=== PATIENT | female | born 1990 | race Caucasian/White ===

== ENCOUNTER 2016-12-31 13:18 | Emergency (ER) | payer SELFPAY ==
[~2016-12-31] VITALS: Ht 154.9 cm; Wt 66.8 kg
[2016-12-31 13:21] VITALS: TEMP 37.2; Ht 154.9 cm; Wt 66.8 kg
[2016-12-31] MEDS ORDERED: KETOROLAC TROMETHAMINE 30 MG/ML VIAL IV STA (14:35)
[2016-12-31] MEDS ORDERED: SODIUM CHLORIDE 0.9% 1000ML 1,000 ML IV STA (14:35)
[2016-12-31 15:03] LABS: BASO % 0.2 %; BASO ABS # 0.03 K/uL (0-0.2); COMPLETE YES; HEMATOCRIT 46.9 % (37-47); IG% 0.3 %; LYMPH % 13.8 %; LYMPH ABS # 1.93 K/uL (1.2-3.4); MEAN CELL VOLUME 95.9 fL (80-100); MEAN CORPUSCULAR HEMOGLOBIN 31.3 pg (25-34); MEAN CORPUSCULAR HGB CONC 32.6 g/dl (32-36); MEAN PLATELET VOLUME 11.6 fL (7.4-10.4); MONO % 9.8 %; NEUT % 75.9 %; PLATELET COUNT 177 K/uL (130-400); RED BLOOD COUNT 4.89 M/uL (4.2-5.4); WHITE BLOOD COUNT 14.03 K/uL (4.8-10.8)
[2016-12-31 15:31] LABS: BUN/CREATININE RATIO 8.2 (10-20); POTASSIUM 4.3 mmol/L (3.5-5.1)
[2016-12-31] MEDS ORDERED: AMOXICILLIN/CLAVULANATE TAB 875 MG TAB PO ONE (15:45)
[2016-12-31] MEDS ORDERED: PRED20TA2 PO (15:50)
[2016-12-31] MEDS ORDERED: AMOX875T PO (15:50)
--- NOTE | 2016-12-31 15:51 | EMERGENCY ROOM VISIT NOTE ---
History First contact with patient: 13:25 Chief Complaint: ILLNESS Stated Complaint: SWOLLEN THROAT, BODY ACHES, FEVER History of Present Illness The patient is a 26 year old female who presents to the Emergency Room with complaints of sore throat and body aches for the past 2 days. The patient states that she has had swollen glands in her throat and body aches, especially in her hips and legs. She rates her discomfort a 7/10. Symptoms have been persistent over the past 2 days. She has a slight headache and states that her stools have been slightly loose. She denies any nausea/vomiting, abdominal pain , chest pain, shortness breath, cough or neck pain/stiffness. She has not taken her temperature at home but feels she has had a fever. She has been taking Tylenol for symptoms. She denies any recent tick bites and does not live in the [facility]. Review of Systems A complete 10 point review of systems was reviewed with the patient with pertinent positives and negatives as per history of present illness. All else were negative. Social History Smoking Status: Current Every Day Smoker Alcohol Use: occasionally Drug Use: none Current/Historical Medications Scheduled Amoxicillin & Pot Clavulanate (Augmentin 875-125 mg), 1 TAB PO BID Prednisone (Prednisone Tab), 2 TAB PO DAILY Physical Exam Vital Signs Date Time Temp Pulse Resp B/P (MAP) Pulse Ox O2 Delivery O2 Flow Rate FiO2 12/31/16 16:44 104 20 107/63 97 12/31/16 15:14 92 20 115/78 98 Room Air 12/31/16 13:21 37.2 107 20 105/73 98 Room Air Physical Exam VITALS: Vitals are noted on the nurse's note and reviewed by myself. Vital signs stable. GENERAL: This is a 26-year-old female, in no acute distress, nondiaphoretic, well-developed well-nourished. SKIN: The skin was without rashes. EARS: External auditory canals clear, tympanic membranes pearly etienne without erythema or effusion bilaterally. EYES: Pupils equal round and reactive to light and accommodation. Conjunctivae without injection, sclerae without icterus. MOUTH: Mucous membranes moist. The right tonsil is enlarged and there is exudate present. Uvula midline. Airway patent. NECK: Supple without nuchal rigidity. There is tender right anterior cervical lymphadenopathy. No meningismus. HEART: Regular rate and rhythm without murmurs gallops or rubs. LUNGS: Clear to auscultation bilaterally without wheezes, rales or rhonchi. ABDOMEN: Soft, nontender to palpation. NEURO: Patient was alert and oriented to person place and time. Medical Decision & Procedures Laboratory Results 12/31/16 14:50 Red Blood Count 4.89, Mean Corpuscular Volume 95.9, Mean Corpuscular Hemoglobin 31.3, Mean Corpuscular Hemoglobin Concent 32.6, Mean Platelet Volume 11.6, Neutrophils (%) (Auto) 75.9, Lymphocytes (%) (Auto) 13.8, Monocytes (%) (Auto) 9.8, Eosinophils (%) (Auto) 0.0, Basophils (%) (Auto) 0.2, Neutrophils # (Auto) 10.66, Lymphocytes # (Auto) 1.93, Monocytes # (Auto) 1.37, Eosinophils # (Auto) 0.00, Basophils # (Auto) 0.03 12/31/16 14:50 Test 12/31/16 14:50 White Blood Count 14.03 K/uL (4.8-10.8) Red Blood Count 4.89 M/uL (4.2-5.4) Hemoglobin 15.3 g/dL (12.0-16.0) Hematocrit 46.9 % (37-47) Mean Corpuscular Volume 95.9 fL (80-100) Mean Corpuscular Hemoglobin 31.3 pg (25-34) Mean Corpuscular Hemoglobin Concent 32.6 g/dl (32-36) Platelet Count 177 K/uL (130-400) Mean Platelet Volume 11.6 fL (7.4-10.4) Neutrophils (%) (Auto) 75.9 % Lymphocytes (%) (Auto) 13.8 % Monocytes (%) (Auto) 9.8 % Eosinophils (%) (Auto) 0.0 % Basophils (%) (Auto) 0.2 % Neutrophils # (Auto) 10.66 K/uL (1.4-6.5) Lymphocytes # (Auto) 1.93 K/uL (1.2-3.4) Monocytes # (Auto) 1.37 K/uL (0.11-0.59) Eosinophils # (Auto) 0.00 K/uL (0-0.5) Basophils # (Auto) 0.03 K/uL (0-0.2) RDW Standard Deviation 43.5 fL (36.4-46.3) RDW Coefficient of Variation 12.4 % (11.5-14.5) Immature Granulocyte % (Auto) 0.3 % Immature Granulocyte # (Auto) 0.04 K/uL (0.00-0.02) Anion Gap 7.0 mmol/L (3-11) Est Creatinine Clear Calc Drug Dose 74.5 ml/min Estimated GFR () 90.1 Estimated GFR (Non- 77.7 BUN/Creatinine Ratio 8.2 (10-20) Calcium Level 9.0 mg/dl (8.5-10.1) Chemistry Specimen Hemolysis Monoscreen NEG (NEG) Medications Administered Medications (Trade) Dose Ordered Sig/Tasha Route Start Time Stop Time Status Last Admin Dose Admin Sodium Chloride 1,000 ml @ 999 mls/hr Q1H1M STAT IV 12/31/16 14:35 12/31/16 15:35 DC 12/31/16 14:35 999 MLS/HR Ketorolac Tromethamine (Toradol Inj) 30 mg NOW STAT IV 12/31/16 14:35 12/31/16 14:36 DC 12/31/16 14:35 30 MG Amoxicillin/ Clavulanate Potassium (Augmentin Tab) 875 mg ONE ONCE PO 12/31/16 15:45 12/31/16 15:46 DC 12/31/16 15:45 875 MG Prednisone (PredniSONE TAB) 40 mg NOW STAT PO 12/31/16 15:45 12/31/16 15:46 DC 12/31/16 15:45 40 MG ED Course The patient was evaluated as above. Labs were drawn and IV access was obtained. Patient was medicated with 1 L normal saline solution and 30 g Toradol IV. Patient was reevaluated and findings were discussed. She was given one dose of Augmentin and a dose of prednisone. Discharge instructions were reviewed with the patient. The patient verbalized understanding of my assessment and treatment plan and was discharged home in good condition. Medical Decision Differential diagnosis includes strep pharyngitis, mononucleosis, Lyme disease, viral illness, peritonsillar abscess, among others. The patient is a 26-year-old female presented with sore throat, swollen lymph nodes and body aches. Exam is consistent with strep pharyngitis, however rapid strep swab was negative. Monospot was negative. CBC shows a leukocytosis consistent with infection. Patient is afebrile and nontoxic. She will be treated as an outpatient with Augmentin and prednisone due to the high likelihood of strep pending the culture. She was instructed to follow-up with her primary care provider as needed. She verbalized understanding of my assessment and treatment plan was discharged home in good condition. Blood Pressure Screening Patient's blood pressure: Normal blood pressure Impression Primary Impression: Acute pharyngitis Departure Information Dispostion Home / Self-Care Condition GOOD Prescriptions Prednisone (Prednisone Tab) 20 Mg Tab 2 TAB PO DAILY for 3 Days, #6 TAB Prov: Jacinda Adams PA-C 12/31/16 Amoxicillin & Pot Clavulanate (Augmentin 875-125 mg) 1 Tab Tab 1 TAB PO BID for 7 Days, #14 TAB Prov: Jacinda Adams PA-C 12/31/16 Referrals No Doctor, Assigned (PCP) Patient Instructions My [facility] Additional Instructions You were prescribed Augmentin to be taken twice daily for 7 days. This is an antibiotic. All antibiotics have the potential to cause diarrhea. Stop this medication and contact a medical provider if you were to develop any significant adverse side effects including: wheezing, shortness of breath, passing out, vomiting, or a diffuse rash. Always take antibiotics as directed and COMPLETE the ENTIRE course regardless of the improvement of your symptoms. Prednisone as prescribed. Start this medication tomorrow, as he received her first dose in the emergency department tonight. For pain/fever control, you can use the following [id number] medicines ( if >12 yo): - Regular strength (325mg/tab) Tylenol (acetaminophen) 2 tabs every 4-6 hours as needed. Do not exceed 12 tablets in a 24 hour period. Avoid taking more than 4 grams (4000 mg) of Tylenol per day. This includes any other sources of acetaminophen you may take on a regular basis. - Regular strength (200 mg/tab) Advil (ibuprofen) 1-2 tabs every 4-6 hours as needed. Do not exceed a dose of 3200 mg per day. Follow-up with your primary care provider as needed. You may do warm saltwater gargles to help with pain. Eating cold foods such as popsicles may also help with symptoms. Return to the emergency room with difficulty swallowing, difficult breathing, or any other new/concerning symptoms. Problem Qualifiers Primary Impression: Acute pharyngitis Pharyngitis/tonsillitis etiology: unspecified etiology Qualified Codes: J02.9 - Acute pharyngitis, unspecified
[2016-12-31 16:44] VITALS: BP 107/63; PULSE 104; O2SAT 97
== END 2016-12-31 16:47 | disposition home or self-care (01) ==
LOC: C.EDB 13:20
DX: J02.9 Acute pharyngitis, unspecified (principal); R59.0 Localized enlarged lymph nodes; F17.200 Nicotine dependence, unspecified, uncomplicated

== ENCOUNTER 2019-08-12 17:38 | Inpatient (IN) ==
--- OUTSIDE RECORDS SUMMARY | 2019-08-12 17:43 | External Medical Summary | Continuity of Care Document ---
:1990 Author Name Stacey Sanders, Provider Address Unavailable Unavailable , Care Team Providers Name Role Phone Jie Beal PA-C Unavailable [email or web address] M.D., BONG Escobedo Unavailable Unavailable Problems Active medical history not documented Allergies and Adverse Reactions Allergy history not documented Medications Medications not documented Procedures Procedures not documented Immunizations Immunizations not documented Plan of Treatment Planned Observations Planned Goals not documented Results No Known Results Results not documented Encounters Appointment; Jie Beal PA-C 11-Apr-2017 10:30 Encounter Diagnosis: Problem not documented
[2019-08-12] MEDS ORDERED: ACETAMINOPHEN 325 MG TAB PO PRN (18:20)
[2019-08-12] MEDS: LACTATED RINGER'S 1,000 ML IV PRN ×2 (18:29→19:26)
[2019-08-12 18:39] LABS: Appearance Urine Cloudy (Clear); Bacteria Urine Automated 1+ (Negative); Bilirubin Urine Negative (Negative); Blood Urine Negative (Negative); Color Urine Yellow; Epithelial Cell Urine Auto >30 /lpf (0-5); Glucose Urine UA Negative (Negative); Ketones Urine Negative (Negative); Leukocyte Esterase Urine 2+ (Negative); Nitrite Urine Negative (Negative); Protein Urine Negative (Negative); RBC Urine Automated 0-4 /hpf (0-4); Specific Gravity Urine 1.017 (1.000-1.030); Urobilinogen Urine Negative (Negative); WBC Urine Automated >30 /hpf (0-5); pH Urine 7.5 (4.5-7.5)
[2019-08-12 19:20] LABS: Albumin Level 2.6 gm/dl (3.4-5.0); BUN Creatinine Ratio 13.5 (10-20); Calcium 8.7 mg/dl (8.5-10.1); Creatinine Clr Calc Pharmacy 128.1 ml/min; Est GFR (Non-African American) 123.4; Potassium 3.9 mmol/L (3.5-5.1)
[2019-08-12 19:23] LABS: Albumin Globulin Ratio 0.7 (0.9-2); Bilirubin,Total 0.2 mg/dl (0.2-1); Globulin 3.6 gm/dl (2.5-4.0); Total Protein 6.2 gm/dl (6.4-8.2)
[2019-08-12 19:26] LABS: Basophils # (auto) 0.02 K/uL (0-0.2); Basophils % (auto) 0.2 %; Eosinophils # (auto) 0.18 K/uL (0-0.5); Eosinophils % (auto) 1.5 %; Hematocrit (blood only) 31.2 % (37-47); Hemoglobin 10.3 g/dL (12.0-16.0); Immature Granulocytes # (auto) 0.07 K/uL (0.00-0.02); Immature Granulocytes % (auto) 0.6 %; Lymphocytes # (auto) 3.03 K/uL (1.2-3.4); Lymphocytes % (auto) 24.7 %; Mean Corpuscular Hemoglobin 30.1 pg (25-34); Mean Corpuscular Volume 91.2 fL (80-100); Mean Platelet Volume 10.9 fL (7.4-10.4); Monocytes # (auto) 1.12 K/uL (0.11-0.59); Monocytes % (auto) 9.1 %; Neutrophils # (auto) 7.85 K/uL (1.4-6.5); Neutrophils % (auto) 63.9 %; Platelet Count 228 K/uL (130-400); RDW Coefficient of Variation 14.1 % (11.5-14.5); Red Blood Count 3.42 M/uL (4.2-5.4); White Blood Count 12.27 K/uL (4.8-10.8)
--- NOTE | 2019-08-12 20:15 | Ultrasound Report ---
US renal/blad retro comp HISTORY: Nephrocalcinosis Kidney Stone COMPARISON: None. FINDINGS: Right kidney: Maximum dimension 12.3 cm. Mild right renal hydronephrosis. 4 mm lower pole calcificati on. Normal corticomedullary differentiation and cortical thickness. Left kidney: Maximum dimension 12.0 cm. No evidence for nephrocalcinosis. Normal corticomedullary di fferentiation and cortical thickness. Bladder: No bladder wall thickening. The left ureteral jets were identified. IMPRESSION: 1. Mild to moderate right renal hydronephrosis. 2. No evidence for a right ureteral jet. 3. Nonobstructing 4 mm lower pole right renal calcification. ACT 112: Negative or not required by law. The above report was generated using voice recognition software. It may contain grammatical, syntax or spelling errors. Electronically signed by: Kapil Hubbard M.D. 08/12/2019 8:14 PM
[2019-08-12] MEDS ORDERED: OXYTOCIN 30 UNITS/500 ML BAG IV PRN ×2 (21:14→21:32)
[2019-08-12] MEDS ORDERED: LACTATED RINGER'S 1,000 ML IV PRN (21:14)
--- NOTE | 2019-08-12 21:27 | History & Physical Report ---
Date of Service August 12, 2019 Assessment & Plan (1) Bladder pain: Patient is a 28-year-old, -0-0-1 at 40 weeks of gestation, presenting with flank pain bladder pain and discomfort during urination. Ultrasound and findings suggesting renal stone with mild to moderate right renal hydronephrosis. Vital signs stable afebrile, heart rate reassuring. Cervix favorable at term. Offered her induction of labor tonight due to findings and being full-term. She agreed with the plan.Desires her came first. All questions were answered. Start Oxytocin in 2 hours. (2) Nephrolithiasis: (3) Hydronephrosis: History of Present Illness Chief Complaint: Bladder pain Primary Care Provider: NO PCP Patient is a 28-year-old -0-0-1 at 40 weeks of gestation who presented to labor and delivery with right flank pain radiating to her right groin and bladder pain and difficulty with urination for the last 5 days. She was in the office today and her urine dip did not show any signs of infection or kidney stones. She was recommended to increase p.o. fluids and call with increased pain. 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 States pain has been getting worse over time she. She gets sharp severe pain during urination and sometimes unable to pass urine. She has irregular contractions but they are not painful for her. She denies leakage of fluid or vaginal bleeding. She denies fever chills nausea vomiting headache change in her vision. She reports good movements. Her has been uncomplicated, GBS is negative. Since she has been here she had IV fluids and p.o. Tylenol. Her blood work including CBC CMP were normal. Urine dip showed positive leukocyte esterase and bacteria. Her renal ultrasound is as follows: 1. Mild to moderate right renal hydronephrosis. 2. No evidence for a right ureteral jet. 3. Nonobstructing 4 mm lower pole right renal calcification We discussed the findings above possible right kidney stones and management of kidney stones during . I offered her induction of labor tonight due to being full-term and findings above as well as her cervix being favorable. We discussed options for induction of labor with p.o. Cytotec or intravaginal Cervidil or IV Pitocin. She agreed to stay for induction of labor. Allergies Allergy/AdvReac Type Severity Reaction Status Date / Time No Known Allergies Allergy Verified 09/25/18 20:31 Home Medications Home Medications Medication Instructions Recorded Confirmed Type 1 tab PO DAILY 08/12/19 08/12/19 History Patient History Surgical History No pertinent past surgical history Family History Other Family history non-contributory Social History Preferred Language: Kiswahili Communication Ability: Effective Beliefs That Will Affect Care: None marital status: Single Current Living Situation: Spouse Other Information That Helps Us Care for You: No Feels Safe at Home: Yes Safety Concerns: Feels Safe At This Time Smoking Status: Current every day smoker Tobacco Type: cigarettes ; Cigarettes Per Day: 5 ; Do You Dip or Chew Tobacco: No ; Second Hand Exposure: No ; Hx Alcohol Use: No Hx Substance Use: No OB History Full-term spontaneous vaginal delivery in 2013, uncomplicated. [employer] History Patient denies any history of STDs including chlamydia gonorrhea or HSV. Review of Systems All systems reviewed & are unremarkable except as noted in HPI & below Physical Exam Constitutional: WD/WN, vitals as above well developed and well nourished Genitourinary: normal external appearance Her cervix is 3 to 4 cm dilated, 50% effaced, vertex at -3 station and soft. Results & Data Vital Signs (Past 12 Hours) Vital Signs Temp Pulse Resp BP 08/12/19 19:07 36.6 C 82 18 111/69 08/12/19 17:49 36.7 C 95 H 20 116/79 08/12/19 17:48 36.7 C 95 H 20 116/79 Monitoring External Monitor heart rate is reassuring with a baseline of 130s with good variability, good accelerations, no decelerations. Tocodynamometer Irregular contractions every 2 to 5 minutes patient does not feel all of them.
[2019-08-12] MEDS: cephALEXin 500 MG CAP PO SCH (21:59)
[2019-08-13] MEDS ORDERED: BUTORPHANOL TARTRATE 1 MG/ML VIAL IV PRN (00:17)
[2019-08-13] MEDS ORDERED: ePHEDrine sulfate 50 MG/ML AMP ONE (03:49)
[2019-08-13] MEDS ORDERED: fentaNYL citrate 100 MCG/2 ML VIAL ONE (03:49)
[2019-08-13] MEDS ORDERED: BUPIVACAINE 0.25% 30 ML VIAL ONE (03:49)
[2019-08-13] MEDS ORDERED: fentaNYL 2MCG/ML ROPIV 1.25MG/ML 100 ML BAG EPI ONE (03:50)
[2019-08-13] MEDS: LACTATED RINGER'S 1,000 ML IV PRN ×4 (04:04→21:24)
--- NOTE | 2019-08-13 04:32 | Anesthesiology Consultation ---
Date of Service August 13, 2019 Assessment & Plan Chart Review Chart Review: Acceptable Risk for Labor Epidural Consults Requested none History Height/Weight Height: 5 ft 2 in Weight: 72.575 kg Allergies Allergy/AdvReac Type Severity Reaction Status Date / Time No Known Allergies Allergy Verified 09/25/18 20:31 Medications Home Medications Medication Instructions Recorded Confirmed Last Taken 1 tab PO DAILY 08/12/19 08/12/19 08/12/19 Active Medications Generic Name Dose Route Start Last Admin Trade Name Freq PRN Reason Stop Dose Admin Cephalexin HCl 500 mg 08/12/19 21:00 08/12/19 21:59 Keflex PO 08/17/19 20:59 500 mg TID JOSE Administration Lactated Ringer's 1,000 mls @ 150 mls/hr 08/12/19 18:20 08/13/19 04:21 Lr IV 09/11/19 18:19 150 mls/hr .Q6H40M PRN Infusion L&D Protocol Protocol Oxytocin 30 units in 500 mls @ 4 mls/hr 08/12/19 21:32 08/13/19 01:35 Pitocin IV 08/14/19 21:31 0.24 units/hr .Q24H PRN 4 mls/hr Labor Induction/Augmentation Titration Protocol 0.24 UNITS/HR Past Family History Family History Other Family history non-contributory Past Surgical History Surgical History No pertinent past surgical history Social History Smoking Status: Current every day smoker tobacco type: cigarettes Smoking cigarettes per day: 5 Do You Dip or Chew Tobacco: No Hx Alcohol Use: No Hx Substance Use: No Physical Exam Vital Signs Last Vital Signs Temp 37.2 C 08/12/19 23:05 Pulse 85 08/13/19 04:30 Resp 18 08/12/19 23:05 BP 109/62 08/13/19 04:30 Pulse Ox 98 08/13/19 04:30 Testing Laboratory Results 08/12/19 18:43 08/12/19 18:43 Urine Color Yellow 08/12/19 18:10 Urine Appearance Cloudy (Clear) A 08/12/19 18:10 Urine pH 7.5 (4.5-7.5) 08/12/19 18:10 Ur Specific [place] 1.017 (1.000-1.030) 08/12/19 18:10 Urine Protein Negative (Negative) 08/12/19 18:10 Urine Glucose (UA) Negative (Negative) 08/12/19 18:10 Urine Ketones Negative (Negative) 08/12/19 18:10 Urine Nitrite Negative (Negative) 08/12/19 18:10 Ur Leukocyte Esterase 2+ (Negative) H 08/12/19 18:10 Urine WBC (Auto) >30 /hpf (0-5) H 08/12/19 18:10 Urine RBC (Auto) 0-4 /hpf (0-4) 08/12/19 18:10 U Hyaline Cast (Auto) 1-5 /lpf (0-5) 08/12/19 18:10 U Epithel Cells (Auto) >30 /lpf (0-5) H 08/12/19 18:10 Urine Bacteria (Auto) 1+ (Negative) H 08/12/19 18:10
[2019-08-13] MEDS ORDERED: ePHEDrine sulfate 50 MG/ML AMP IV PRN (04:35)
[2019-08-13] MEDS ORDERED: NALBUPHINE HCL INJ 10 MG/ML AMP IV PRN (04:35)
[2019-08-13] MEDS ORDERED: NALOXONE HCL 1 MG in SODIUM CHLORIDE 0.9% 1000ML 1,000 ML IV PRN (04:35)
[2019-08-13] MEDS ORDERED: NALOXONE HCL 0.4 MG/1 ML VIAL/CARP IV PRN (04:35)
[2019-08-13] MEDS ORDERED: ONDANSETRON INJ 2 MG/ML 2 ML VIAL IV PRN ×2 (04:35→13:15)
[2019-08-13] MEDS ORDERED: DiphenhydrAMINE HCL 50 MG/ML VIAL IV PRN (04:35)
[2019-08-13] MEDS ORDERED: fentaNYL 2MCG/ML ROPIV 1.25MG/ML 100 ML BAG EPI PRN (04:35)
--- NOTE | 2019-08-13 06:44 | Obstetrical Progress Note ---
Date of Service August 13, 2019 Assessment & Plan Admission and Anticipated Discharge Date Admission Date: August 12, 2019 Subjective Patient is reevaluated She feels comfortable, received epidural VSS Afebrile FHR has [facility] categ [facility]; 4/ 60%/ -2 [place] ctxs q 2-3 min, pitocin is at 10 miu/min Continue to monitor Will sign out to Dr Wood Results & Data ([facility]) Vital Signs (Past 12 Hours) Vital Signs Temp Pulse Resp BP Pulse Ox 08/13/19 06:40 91 H 98 08/13/19 06:39 80 119/78 08/13/19 06:35 77 98 08/13/19 06:30 82 97 08/13/19 06:25 81 97 08/13/19 06:24 95 H 117/75 08/13/19 06:20 89 98 08/13/19 06:15 83 96 08/13/19 06:10 77 116/60 97 08/13/19 06:05 80 96 08/13/19 06:00 78 97 08/13/19 05:55 74 97 08/13/19 05:54 73 117/76 08/13/19 05:50 80 98 08/13/19 05:45 76 18 98 08/13/19 05:40 80 97 08/13/19 05:38 81 103/70 08/13/19 05:35 88 99 08/13/19 05:30 37.1 C 95 H 97 08/13/19 05:25 104 H 98 08/13/19 05:24 45 L 120/75 08/13/19 05:20 85 98 08/13/19 05:15 81 97 08/13/19 05:10 79 97 08/13/19 05:08 84 97/53 L 08/13/19 05:05 78 97 08/13/19 05:00 81 97 08/13/19 04:55 81 97 08/13/19 04:53 77 95/59 L 08/13/19 04:50 89 97 08/13/19 04:45 90 98 08/13/19 04:40 84 98 08/13/19 04:38 86 98/55 L 08/13/19 04:36 89 118/73 08/13/19 04:35 92 H 98 08/13/19 04:34 87 108/63 08/13/19 04:32 101 H 110/59 L 08/13/19 04:30 85 109/62 98 08/13/19 04:28 76 112/62 08/13/19 04:25 83 105/63 96 08/13/19 04:20 83 98 08/13/19 04:19 90 109/60 08/13/19 04:15 76 100 08/13/19 04:10 91 H 100 08/13/19 04:05 96 H 100 08/13/19 04:00 77 18 98 08/13/19 03:50 81 120/78 08/12/19 23:05 37.2 C 18 08/12/19 22:58 94 H 115/73 08/12/19 19:07 36.6 C 82 18 111/69
[2019-08-13] MEDS: cephALEXin 500 MG CAP PO SCH ×3 (09:10→21:24)
[2019-08-13] MEDS ORDERED: SUPERCREAM 0.870% 15 GM JAR EXT PRN (12:17)
[2019-08-13] MEDS ORDERED: ACETAMINOPHEN W/CODEINE #3 1 TAB PO PRN (12:17)
[2019-08-13] MEDS ORDERED: DIPHTHERIA/TETANUS/PERTUSSIS 0.5 ML SYR/VIAL IM ONE (12:17)
[2019-08-13] MEDS ORDERED: BENZOCAINE 20% AER SPR 82.5 GM CAN EXT PRN (12:17)
[2019-08-13] MEDS ORDERED: HYDROCORTISONE ACETATE 25 MG SUPP PR PRN (12:17)
[2019-08-13] MEDS ORDERED: OXYTOCIN 30 UNITS/500 ML BAG IV PRN (12:17)
[2019-08-13] MEDS ORDERED: OXYCODONE/ACETAMINOPHEN 5mg/325mg TAB PO PRN (12:17)
[2019-08-13] MEDS ORDERED: ACETAMINOPHEN 325 MG TAB PO PRN (12:17)
[2019-08-13] MEDS ORDERED: bisacodyL 10 MG SUPP PR PRN (12:17)
[2019-08-13 12:22] VITALS: O2SAT 97
--- NOTE | 2019-08-13 12:40 | Delivery Summary ---
DATE OF OPERATION: 08/13/2019 She is a 28-year-old 2, para 2, blood type is O positive, group B strep negative 40 weeks and 1 day gestation brought in for induction due to hydronephrosis and possible kidney stone. Eventually ended up with an epidural and on Pitocin. She had a good contraction pattern. Delivered a live via direct occiput anterior position over an intact perineum. was suctioned through the mouth and the nose after delivery of the head. Then the posterior arm was delivered over the perineum. The rest of the came without difficulty. Cord was clamped, cut by the father. Cord blood was taken. With IV Pitocin running, the placenta was removed intact. Inspection of the perineum revealed no lacerations. Estimated blood loss was 100 mL. Apgars were deferred to the nurses. The patient tolerated the procedure well. I attest to the content of the Intraoperative Record and any orders documented therein. Any exception s are noted below.
--- NOTE | 2019-08-13 12:58 | Anesthesia Procedure Note ---
Date of Service August 13, 2019 Anesthesia Post Epidural Note Vital Signs Vital Signs: Temp Pulse Resp BP Pulse Ox 37.3 C 103 H 18 116/70 97 08/13/19 10:55 08/13/19 12:28 08/13/19 10:55 08/13/19 12:40 08/13/19 12:20 Notes Mental Status: alert / awake / arousable and participated in evaluation Nausea / Vomiting: adequately controlled Pain: adequately controlled Airway Patency, RR, SpO2: stable & adequate BP & HR: stable & adequate Hydration State: stable & adequate Neuraxial Anesthesia: was administered and sensory block is resolving Anesthetic Complications: no major complications apparent and Pt Satisfied with anesthetic care Epidural: Removed without complications and With tip intact Notes: Epidural site clean, dry and intact. No signs of edema, erythema or bruising at insertion site. Pt instructed to request anesthesia if she has residual lower extremity numbness or if she develops lower extremity pain or weakness, back pain or headache.
[2019-08-13] MEDS: OXYCODONE/ACETAMINOPHEN 5mg/325mg TAB PO PRN ×2 (13:18→17:47)
[2019-08-13] MEDS ORDERED: MoRPHine SULFATE 2 MG/ML CARP IV PRN (14:56)
--- NOTE | 2019-08-13 16:22 | CT Scan Report ---
ABDOMEN AND PELVIS CT WITHOUT CONTRAST CT DOSE: 410.28 mGy.cm HISTORY: Acute pelvic pain with kidney stones and recent intrauterine gestation. kidney stones pelvi c pain TECHNIQUE: Multiaxial CT images of the abdomen and pelvis were performed without contrast. A dose lo wering technique was utilized adhering to the principles of ALARA. COMPARISON STUDY: Renal ultrasound 08/12/2019 FINDINGS: Lung bases are clear. No pneumatosis or pneumoperitoneum. The imaged inferior cardiac chambers appear unremarkable. Limited evaluation of the solid abdominal organs without the use of IV contrast. Unrem arkable appearance of the unenhanced liver, spleen, pancreas and adrenal glands. The gallbladder is m ildly distended. There are least 4 nonobstructing calculi of the left kidney. Mild left-sided hydronephrosis secondary to a 5 mm calculus of the left ureteropelvic junction. Nonobstructing calculi of the inferior pole r ight kidney measure up to 6 mm. Mild dilation of the right ureter without obstructing calculus. There are 2 hyperdense foci noted within the region of the dependent urinary bladder measuring up to 4 mm possibly reflective of urinary bladder calculi. Moderate urinary bladder distention. Enlarged and het erogeneous uterus measures up to 22 cm in length. Thickening with edema is noted surrounding the cerv ix and vagina. Trace free pelvic fluid. Aorta and IVC are unremarkable. No adenopathy. No bowel obstruction or bowel wall thickening. Noninflamed appendix. Air is noted within the epidural space of the lower thorax and lumbar spine, likely postprocedural. Bones appear intact. IMPRESSION: 1. 5 mm calculus of the left ureteropelvic junction results in mild hydronephrosis. 2. Nonobstructing bilateral nephrolithiasis. 3. Mild dilation of the right ureter without obstructing calculus may be secondary to physiologic teetee nges. 4. There are two hyperdense foci within the dependent urinary bladder measuring up to 4 mm which may reflect urinary bladder calculi. 5. Enlarged and heterogeneous uterus, likely secondary to post gravid changes. 6. Normal appendix. ACT 112: Negative or not required by law. The above report was generated using voice recognition software. It may contain grammatical, syntax o r spelling errors. Electronically signed by: Pranay Hernandez M.D. 08/13/2019 4:21 PM
[2019-08-13] MEDS: IBUPROFEN 600 MG TAB PO PRN (17:47)
[2019-08-13] MEDS: DOCUSATE SODIUM 100 MG CAP PO SCH (21:24)
[2019-08-14] MEDS: OXYCODONE/ACETAMINOPHEN 5mg/325mg TAB PO PRN (00:48)
[2019-08-14 06:14] LABS: Hematocrit (blood only) 28.2 % (37-47); Hemoglobin 9.1 g/dL (12.0-16.0); Mean Corpuscular Hemoglobin 29.9 pg (25-34); Mean Corpuscular Hgb Conc 32.3 g/dL (32-36); Mean Corpuscular Volume 92.8 fL (80-100); Mean Platelet Volume 10.9 fL (7.4-10.4); Platelet Count 181 K/uL (130-400); RDW Coefficient of Variation 14.5 % (11.5-14.5); Red Blood Count 3.04 M/uL (4.2-5.4); White Blood Count 14.95 K/uL (4.8-10.8)
[2019-08-14] MEDS: DOCUSATE SODIUM 100 MG CAP PO SCH ×2 (08:00→20:13)
[2019-08-14] MEDS: PRENATAL VITAMIN 1 TAB PO SCH (08:00)
[2019-08-14] MEDS: cephALEXin 500 MG CAP PO SCH ×3 (08:01→20:17)
--- NOTE | 2019-08-14 09:58 | Obstetrical Progress Note ---
Date of Service August 14, 2019 Assessment & Plan Admission and Anticipated Discharge Date Admission Date: August 12, 2019 Subjective doing well tolerating diet passing gas ambulating well Physical Exam Constitutional: WD/WN, vitals as above comfortable abdomen soft and non- tender fundus firm no edema neg Rishabh's tent d/c in AM Results & Data ([facility]) Vital Signs (Past 12 Hours) Vital Signs Temp Pulse Pulse Resp BP BP Pulse Ox 08/14/19 07:30 36.7 C 80 18 105/66 97 08/14/19 02:45 36.8 C 66 16 98/61 L 08/13/19 23:15 36.7 C 69 16 96/59 L Laboratory Results Laboratory Results - last 72 hr 08/12/19 08/12/19 08/12/19 18:10 18:43 18:43 WBC 12.27 H RBC 3.42 L Hgb 10.3 L Hct 31.2 L MCV 91.2 MCH 30.1 MCHC 33.0 RDW Std Deviation 47.0 H RDW Coeff of Domo 14.1 Plt Count 228 MPV 10.9 H Immature Gran % (Auto) 0.6 Neut % (Auto) 63.9 Lymph % (Auto) 24.7 [place] % (Auto) 9.1 Eos % (Auto) 1.5 Baso % (Auto) 0.2 Immature Gran # (Auto) 0.07 H Neut # (Auto) 7.85 H Lymph # (Auto) 3.03 [place] # (Auto) 1.12 H Eos # (Auto) 0.18 Baso # (Auto) 0.02 Sodium 136 Potassium 3.9 Chloride 106 Carbon Dioxide 21 Anion Gap 9.0 BUN 8 Creatinine 0.61 Est Cr Clr Drug Dosing 128.1 Est GFR ( Amer) 143.0 Est GFR (Non-Af Amer) 123.4 BUN/Creatinine Ratio 13.5 Glucose 84 Calcium 8.7 Total Bilirubin 0.2 AST 10 L ALT 16 Alkaline Phosphatase 110 Total Protein 6.2 L Albumin 2.6 L Globulin 3.6 Albumin/Globulin Ratio 0.7 L Urine Color Yellow Urine Appearance Cloudy A Urine pH 7.[address] 1[address]017 Urine Protein Negative Urine Glucose (UA) Negative Urine Ketones Negative Urine Blood Negative Urine Nitrite Negative Urine Bilirubin Negative Urine Urobilinogen Negative Ur Leukocyte Esterase 2+ H Urine WBC (Auto) >30 H Urine RBC (Auto) 0-4 U Hyaline Cast (Auto) 1-5 U Epithel Cells (Auto) >30 H Urine Bacteria (Auto) 1+ H 08/14/19 05:48 WBC 14.95 H RBC 3.04 L Hgb 9.1 L Hct 28.2 L MCV 92.8 MCH 29.9 MCHC 32.3 RDW Std Deviation 49.0 H RDW Coeff of Domo 14.5 Plt Count 181 MPV 10.9 H Immature Gran % (Auto) Neut % (Auto) Lymph % (Auto) [place] % (Auto) Eos % (Auto) Baso % (Auto) Immature Gran # (Auto) Neut # (Auto) Lymph # (Auto) [place] # (Auto) Eos # (Auto) Baso # (Auto) Sodium Potassium Chloride Carbon Dioxide Anion Gap BUN Creatinine Est Cr Clr Drug Dosing Est GFR ( Amer) Est GFR (Non-Af Amer) BUN/Creatinine Ratio Glucose Calcium Total Bilirubin AST ALT Alkaline Phosphatase Total Protein Albumin Globulin Albumin/Globulin Ratio Urine Color Urine Appearance Urine pH Ur Specific [address] Urine Protein Urine Glucose (UA) Urine Ketones Urine Blood Urine Nitrite Urine Bilirubin Urine Urobilinogen Ur Leukocyte Esterase Urine WBC (Auto) Urine RBC (Auto) U Hyaline Cast (Auto) U Epithel Cells (Auto) Urine Bacteria (Auto)
--- NOTE | 2019-08-14 10:34 | Urology Consultation ---
Date of Consultation August 14, 2019 Assessment & Plan (1) Hydronephrosis: (2) Left ureteral calculus: 28 yo F admitted to L&D at 40 weeks gestations for induction of labor due to right flank pain in the setting of suspected kidney stone. - Feeling much better today - Afebrile, nontoxic, creatinine WNL - No intervention planned today - Discussed that she may pass stone spontaneously given size - Discussed options for observation and max expulsion therapy vs intervention with ureteroscopy or ESWL - Continue aggressive hydration, symptom control - Strain all urine - Ordered KUB to check stone visualization - KUB reviewed - stone visualized, no change in position of a 5 mm x 3 mm left u reteropelvic junction calculus - Okay to provide diet today, make NPO an MN - Will continue to follow Please consult our service urgently if patient develops fever >101F, intractable pain or nausea, as this will necessitate urgent surgical intervention. Thank you for the consultation and we will continue to monitor closely with primary service. History of Present Illness Reason for Consultation: Kidney stone Attending Physician: Jonah Kenny MD History of Present Illness 28 yo F admitted to L&D at 40 weeks gestations for induction of labor due to right flank pain and suspected kidney stone. Patient at 40 weeks gestation presented to L&D on 08/12/19 with groin pain, bladder pain and difficulty with urination for the last 5 days prior to arrival. Per admission note, she was in OB office earlier that day and her urine dip did not show any signs of infection or kidney stones. She was recommended to increase p.o. fluids and call with increased pain. 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 She had JESUS ALBERTO showing mild to moderate right hydronephrosis, nonobstructing 4 mm lower pole right renal calcification. She opted to be induced due to hydronephrosis and suspected kidney stone. She had vaginal delivery on 08/13/19. Urology consulted after delivery due to increased pain in the setting of suspected stone. Chart review: Afebrile Cr (3/3) - 0.61 WBC (3/5) - 14.95 Hgb (3/5) - 9.1 UA - 2+ Leuks, > 30 WBC, Negative blood, negative nitrites, 1+ Bacteria On Cephalexin CT abd pelvis: 1. 5 mm calculus of the left ureteropelvic junction results in mild hydronephrosis. 2. Nonobstructing bilateral nephrolithiasis. 3. Mild dilation of the right ureter without obstructing calculus may be secondary to physiologic changes. 4. There are two hyperdense foci within the dependent urinary bladder measuring up to 4 mm which may reflect urinary bladder calculi. Patient awake and alert and coming out of bathroom at time of visit. and daughter at bedside. States she is feeling much better today. No abdominal, suprapubic, or flank pain at present. Has not utilized pain medication since around midnight. Reports pain was controlled with PO Percocet. Voiding spontaneously. Has noticed that urine feels "gritty." No dysuria. Reports some hesitancy. No f/c/n/v. This is her first kidney stone. She has never seen a urologist. She reports that her father may have history of kidney stones. Allergies Allergy/AdvReac Type Severity Reaction Status Date / Time No Known Allergies Allergy Verified 09/25/18 20:31 Home Medications Home Medications Medication Instructions Recorded Confirmed Type 1 tab PO DAILY 08/12/19 08/12/19 History Patient History Surgical History No pertinent past surgical history Family History Other Family history non-contributory Social History Preferred Language: Algerian Communication Ability: Effective Beliefs That Will Affect Care: None marital status: Single Current Living Situation: Spouse Other Information That Helps Us Care for You: No Feels Safe at Home: Yes Safety Concerns: Feels Safe At This Time Smoking Status: Current every day smoker Tobacco Type: cigarettes ; Cigarettes Per Day: 5 ; Do You Dip or Chew Tobacco: No ; Second Hand Exposure: No ; Hx Alcohol Use: No Hx Substance Use: No Review of Systems Constitutional: as per Subjective / HPI Gastrointestinal: as per Subjective / HPI Genitourinary: as per Subjective / HPI Physical Exam Constitutional: WD/WN, vitals as above no acute distress and not ill appearing Respiratory: normal respiratory effort and able to speak in complete sentences; no respiratory distress and no labored breathing Cardiovascular: Extremities: no pedal edema Gastrointestinal (Abdomen): Percussion/Palpation: abdomen soft; abdomen nontender and no guarding Neurologic: moves all extremities and awake Psychiatric: A+Ox3, euthymic affect Orientation: cooperative Genitourinary: no CVA tenderness Voiding spontaneously, urine not visualized during exam Results & Data Vital Signs (Past 12 Hours) Vital Signs Temp Pulse Pulse Resp BP BP Pulse Ox 08/14/19 07:30 36.7 C 80 18 105/66 97 08/14/19 02:45 36.8 C 66 16 98/61 L 08/13/19 23:15 36.7 C 69 16 96/59 L PG Care Time/CCT Total # of Minutes Spent Total Time Spent with Patient: Total time spent is greater than 50% in coordination of care (as documented) at patient's floor/unit and/or counseling patient: Coding Level of Care Code 74465 Inpt Consult Level 3 Diagnoses Hydronephrosis N13.30 Left ureteral calculus N20.1
--- NOTE | 2019-08-14 11:20 | XRay Report ---
KUB CLINICAL HISTORY: Left ureteral stone COMPARISON STUDY: CT of the abdomen and pelvis August 13, 2019. FINDINGS: A 5 mm x 3 mm left ureteropelvic junction calculus is unchanged in position since CT of Aug. A few right renal calculi measure up to 5 mm. IMPRESSION: 1. No change in position of a 5 mm x 3 mm left ureteropelvic junction calculus. 2. Right-sided nephrolithiasis. ACT 112: Negative or not required by law. Results electronically sent 08/14/2019 11:19 AM to: BLANCO Hopkins Electronically signed by: Polo Peñaloza M.D. 08/14/2019 11:19 AM
[2019-08-14] MEDS: IBUPROFEN 600 MG TAB PO PRN (14:08)
[2019-08-14] MEDS ORDERED: bisacodyL 5 MG TABEC PO SCH (20:00)
[2019-08-15] MEDS: IBUPROFEN 600 MG TAB PO PRN ×2 (00:34→12:37)
[2019-08-15] MEDS: OXYCODONE/ACETAMINOPHEN 5mg/325mg TAB PO PRN (02:06)
[2019-08-15 06:26] LABS: Hematocrit (blood only) 30.8 % (37-47); Hemoglobin 9.9 g/dL (12.0-16.0)
[2019-08-15] MEDS: DOCUSATE SODIUM 100 MG CAP PO SCH (07:34)
[2019-08-15] MEDS: PRENATAL VITAMIN 1 TAB PO SCH (07:34)
--- NOTE | 2019-08-15 07:37 | Urology Progress Note ---
Date of Service August 15, 2019 Assessment & Plan (1) Left ureteral calculus: (2) Hydronephrosis: 28 year-old female admitted to L&D at 40 weeks gestations for induction of labor due to right flank pain in the setting of suspected kidney stone. - Patient feeling well overall. - Afebrile, non-toxic, creatinine normal. - No acute urologic intervention needed today, may have regular diet. - Continue straining all urine. - Discussion with patient regarding bilateral stones, left stone being 5 mm UPJ. - She elects to follow-up outpatient to discuss elective left ESWL. - KUB done 08/13 - left UPJ stone visualized. - Recommend discharge home with pain medication and Tamsulosin if approved by OB. - Consider discharging with PO antibiotic therapy for total of 5 days - Keflex started 08/12. - Discussed with patient importance of hydration. - Will arrange follow-up outpatient with our service next week with KUB. - Okay to discharge from perspective. Thank you for allowing us to participate in the acute care of Mrs. Steele. Please reconsult us with additional questions, concerns or changes in patient status. Subjective Patient alert, awake, comfortable. Did have discomfort to pelvic region overnight - required PO Percocet. Denies flank pain. Denies fevers or chills. Denies nausea or vomiting. Denies hematuria or dysuria. Has been voiding better since epidural, has not required straight cath. She is requesting to manage stone outpatient in near future. Chart review: Hgb 9.9 Creatinine from 08/12/19 0.61 Denies additional urologic concerns today. Review of Systems 2 Constitutional: as per Subjective / HPI; no fever and no chills Gastrointestinal: as per Subjective / HPI; no nausea and no vomiting Genitourinary: as per Subjective / HPI; no dysuria and no hematuria Neurologic: no dizziness and no syncope Physical Exam Constitutional: well developed and well nourished; no acute distress and not ill appearing Respiratory: normal respiratory effort and able to speak in complete sentences; no respiratory distress and no audible wheezes Gastrointestinal (Abdomen): Inspection/Auscultation: abdomen normal to inspection; abdomen not distended Percussion/Palpation: abdomen soft; abdomen nontender and no guarding Psychiatric: Orientation: alert, oriented x 3 and cooperative Affect: euthymic affect Genitourinary: no CVA tenderness Results & Data Vital Signs (Past 12 Hours) Vital Signs Temp Pulse Resp BP 08/14/19 23:40 36.6 C 85 18 127/81 PG Care Time/CCT Total # of Minutes Spent Total Time Spent with Patient: Total time spent is greater than 50% in coordination of care (as documented) at patient's floor/unit and/or counseling patient: Coding Level of Care Code 58170 Subseq Hosp Care Lvl 2 Diagnoses Left ureteral calculus N20.1 Hydronephrosis N13.30
--- NOTE | 2019-08-15 09:01 | Obstetrical Progress Note ---
Date of Service August 15, 2019 Assessment & Plan (1) Normal course: PPD #2 pt doing well Disch home in stable condition Ureteral calculi; Urology in consult d/c home with pain med F/u out pt. with Urology Subjective Ambulation: ambulating normally Voiding: no voiding problems Passing Gas:: Yes Diet Tolerance:: regular diet Lochia:: Small Feeding Type:: breast feeding Review of Systems All systems reviewed & are unremarkable except as noted in HPI & below Physical Exam Constitutional WD/WN, vitals as above well developed and well nourished Eyes PERRL, conjunctivae normal, anicteric sclerae Neck trachea midline, no thyromegaly Respiratory normal respiratory effort, lungs clear to auscultation Auscultation: no crackles, no rales and no wheezes Cardiovascular RRR, no murmur, no edema Gastrointestinal (Abdomen) normal bowel sounds, soft, nontender, no hepatosplenomegaly Uterus is below umbilicus Musculoskeletal no cyanosis or clubbing, extremities motor strength 5/5 Skin no rashes, warm and dry Neurologic patellar DTR's 2+ bilat, sensation intact Psychiatric A+Ox3, euthymic affect Genitourinary normal external appearance Results & Data Vital Signs (Past 12 Hours) Vital Signs Temp Pulse Resp BP Pulse Ox 08/15/19 07:50 36.6 C 74 18 110/70 97 08/14/19 23:40 36.6 C 85 18 127/81
[2019-08-15] MEDS: cephALEXin 500 MG CAP PO SCH ×2 (09:14→14:18)
[2019-08-15 16:30] VITALS: BP 110/71; PULSE 65; TEMP 98.1
== END 2019-08-15 19:15 | disposition home or self-care (01) | DRG 806 ==
LOC: OPB 17:38 → 4S1 17:41 → 4S2 08-13 15:00